=== PATIENT | male | born 1990 | race Caucasian/White ===

== ENCOUNTER 2023-09-07 02:45 | Emergency (ER) | payer SELFPAY ==
[~2023-09-07] VITALS: Ht 152.4 cm; Wt 52.2 kg
[2023-09-07 02:54] VITALS: BP 108/70; PULSE 83; RESP 16; TEMP 97.8; O2SAT 96
== END 2023-09-07 03:13 ==
LOC: MED 02:45
DX: Z02.89 Encounter for other administrative examinations (principal)
CPT/HCPCS: 99283